=== PATIENT | male | born 1975 | race African-American/Black ===

== ENCOUNTER 2017-10-26 21:23 | Emergency (ER) | payer MEDICAID ==
[~2017-10-26] VITALS: Ht 172.7 cm; Wt 62.3 kg
[~2017-10-26 21:23] MED LIST: IBUP-1636 PO
[2017-10-27] MEDS ORDERED: IBUPROFEN 600MG TABLET PO ONE (03:15)
[2017-10-27 04:05] VITALS: BP 139/90
== END 2017-10-27 04:15 | disposition home or self-care (01) ==
LOC: ER 21:23
DX: S91.114A Laceration without foreign body of right lesser toe(s) without damage to nail, initial encounter (principal); F17.200 Nicotine dependence, unspecified, uncomplicated; F12.10 Cannabis abuse, uncomplicated; Z88.1 Allergy status to other antibiotic agents; W22.8XXA Striking against or struck by other objects, initial encounter; Y93.89 Activity, other specified; Y92.89 Other specified places as the place of occurrence of the external cause; Y99.8 Other external cause status
CPT/HCPCS: 99283; Z7610

== ENCOUNTER 2018-03-13 15:24 | Emergency (ER) | payer MEDICAID ==
[~2018-03-13] VITALS: Ht 172.7 cm; Wt 62.0 kg
[2018-03-13 15:47] VITALS: BP 146/84
== END 2018-03-13 22:00 | disposition left against medical advice (07) ==
LOC: ER 21:41
DX: M79.672 Pain in left foot (principal); Z53.21 Procedure and treatment not carried out due to patient leaving prior to being seen by health care provider

== ENCOUNTER 2020-03-09 20:03 | Emergency (ER) | payer MEDICAID ==
[~2020-03-09] VITALS: Ht 172.7 cm; Wt 63.0 kg
[2020-03-09 20:08] VITALS: BP 136/87
[2020-03-09] MEDS ORDERED: AMOXICILLIN/POTASSIUM CLAVULANATE 875/125MG TAB PO ONE (21:15)
[2020-03-09] MEDS ORDERED: IBUPROFEN 600MG TABLET PO ONE (21:15)
== END 2020-03-09 22:41 | disposition home or self-care (01) ==
LOC: ER 20:25
DX: K02.9 Dental caries, unspecified (principal); F12.90 Cannabis use, unspecified, uncomplicated
CPT/HCPCS: 99283

== ENCOUNTER 2020-03-27 16:04 | Emergency (ER) | payer MEDICAID, OTHER ==
[~2020-03-27] VITALS: Ht 172.7 cm; Wt 67.0 kg
[2020-03-27 16:20] VITALS: BP 115/66
[2020-03-27] MEDS ORDERED: AMOXICILLIN/POTASSIUM CLAVULANATE 875/125MG TAB PO ONE (16:45)
[2020-03-27] MEDS ORDERED: IBUPROFEN 600MG TABLET PO ONE (16:45)
== END 2020-03-27 16:45 | disposition home or self-care (01) ==
LOC: ER 16:04
DX: K04.7 Periapical abscess without sinus (principal); F12.90 Cannabis use, unspecified, uncomplicated; Z88.1 Allergy status to other antibiotic agents; Z98.890 Other specified postprocedural states
CPT/HCPCS: 99283

== ENCOUNTER 2021-06-02 22:31 | Emergency (ER) | payer MEDICAID, OTHER ==
[~2021-06-02] VITALS: Ht 172.7 cm; Wt 63.0 kg
[2021-06-02 22:40] VITALS: BP 138/87
[2021-06-03] MEDS ORDERED: VANCOMYCIN 1 G PREMIX 200 ML IV ONE (00:15)
[2021-06-03] MEDS ORDERED: MEROPENEM 1,000 MG in SODIUM CHLORIDE 0.9% 100 ML IV ONE (00:15)
[2021-06-03 00:18] LABS: BASOPHILS % 0.9 % (0.0-2.0); EOSINOPHILS % 2.7 % (0.0-5.0); HEMATOCRIT. 40.2 % (42.0-52.0); HEMOGLOBIN. 13.6 g/dL (14.0-18.0); LYMPHOCYTES % 30.4 % (20.0-50.0); MEAN CORPUSCULAR HEMOGLOBIN 28.6 pg (28.0-32.0); MEAN CORPUSCULAR VOLUME 84.3 fL (80.0-94.0); MEAN PLATELET VOLUME 7.2 fl (7.4-10.4); MONOCYTES % 13.4 % (2.0-8.0); NEUTROPHILS % 52.6 % (40.0-76.0); PLATELET 246 x1000/uL (130-400); RED BLOOD CELL COUNT 4.76 mill/uL (4.7-6.1); RED CELL DISTRIBUTION WIDTH 13.9 % (11.6-14.6)
[2021-06-03 00:45] LABS: CHLORIDE 105 mEq/L (98-107)
== END 2021-06-03 02:18 | disposition left against medical advice (07) ==
LOC: ER 22:31
DX: S91.105A Unspecified open wound of left lesser toe(s) without damage to nail, initial encounter (principal); L03.116 Cellulitis of left lower limb; F12.10 Cannabis abuse, uncomplicated; Z98.890 Other specified postprocedural states; Z79.899 Other long term (current) drug therapy; W57.XXXA Bitten or stung by nonvenomous insect and other nonvenomous arthropods, initial encounter; Y93.89 Activity, other specified; Y92.89 Other specified places as the place of occurrence of the external cause; Y99.8 Other external cause status
CPT/HCPCS: 36415; 73630; 80053; 83605; 85025; 85651; 86140; 87040; 96365; 96367; 99284; J2185; J3370; J7050

== ENCOUNTER 2022-10-23 11:07 | Emergency (ER) | payer MEDICAID, OTHER ==
[~2022-10-23] VITALS: Ht 172.7 cm; Wt 64.0 kg
[2022-10-23] MEDS ORDERED: KETOROLAC 30MG/ML VIAL IM ONE (13:30)
[2022-10-23] MEDS ORDERED: IBUP-2029 MT (13:41)
[2022-10-23] MEDS ORDERED: DOXY150T5 MT (13:41)
[2022-10-23 13:53] VITALS: BP 135/72
== END 2022-10-23 14:56 | disposition home or self-care (01) ==
LOC: ER 11:07
DX: D17.9 Benign lipomatous neoplasm, unspecified (principal); M79.641 Pain in right hand
CPT/HCPCS: 96372; 99283; J1885; Z7610

== ENCOUNTER 2024-07-10 15:13 | Emergency (ER) | payer OTHER ==
[~2024-07-10] VITALS: Ht 172.7 cm; Wt 64.0 kg
[~2024-07-10 15:13] MED LIST changes: +DOXY150T8 MT; +IBUP-2029 MT
[2024-07-10 15:18] VITALS: O2SAT 98
[2024-07-10] MEDS ORDERED: OXYC-104 MT (18:41)
[2024-07-10] MEDS ORDERED: OXYC-100 MT (18:58)
[2024-07-10] MEDS ORDERED: MUPI15CR11 TP (18:59)
[2024-07-10 19:30] VITALS: BP 131/79; PULSE 89; RESP 16; TEMP 36.72516; O2SAT 100
== END 2024-07-10 19:59 | disposition home or self-care (01) ==
LOC: ER 15:13
DX: M79.641 Pain in right hand (principal); M79.642 Pain in left hand; F12.20 Cannabis dependence, uncomplicated; Z88.1 Allergy status to other antibiotic agents; X31.XXXA Exposure to excessive natural cold, initial encounter; Y93.89 Activity, other specified; Y92.89 Other specified places as the place of occurrence of the external cause; Y99.8 Other external cause status
CPT/HCPCS: 99283